=== PATIENT | female | born 1945 | race Caucasian/White ===

== ENCOUNTER → 2020-04-26 | Outpatient (CLI) | payer OTHER ==
[~2020-04-26] MED LIST: ADVIL100 M3 PO; AMBIEN5 MG PO; AMITRIPTYLINE H10 M3 PO; CYMBALTA30 MG PO; DIFLUCAN100 MG PO; ELIQUIS5 MG PO; EYE VITAMINS; FLECAINIDE ACET50 M2 PO; FLEXERIL PO; FOLIC ACID1 MG PO; LASIX PO; LIPITOR 10 MG10 M1 PO; OMEPRAZOLE20 M1 PO; PERCOCET 10-321 EAC1 PO; SINGULAIR 10 MG10 M1 PO; SUPER THERAVIT1 EACH PO; SYMBICORT160 MCG/4. INH; TOPROL XL25 MG PO; VITAMIN D3 PO; XYZAL5 MG PO; ZINC SULFATE220 MG PO
--- NOTE | 2020-05-10 14:22 | PAINCON ---
[address] [address] PAIN MANAGEMENT CONSULTATION Name: RADHA HUGGINS Room: [facility]#: [id number] Admission: 04/26/20 Attend Phys: Arturo Alcantar MD Discharge: Date of : 49 Report #: [id number] THIS REPORT FOR: //name// cc: Amanda Spaulding MD, Pamela MD ~ THIS REPORT FOR: //name// CC: Arturo Spaulding DATE OF SERVICE: 04/26/2020 CHIEF COMPLAINT: Strong nerve pain in the right mid to outer thigh and chronic back pain. HISTORY: The patient is a 74-year-old female who has been referred to the pain clinic for evaluation of chronic pain. This pain has been problematic since 2008. Pain is worse in the morning. Pain has become somewhat worse and she had surgery in September. She underwent a laminectomy. She suffered from a staph infection. She had a second surgery in October. She has been treated with oral steroids for a lung problem. She rates her pain today as a 9/10. She has tried rest, ice in the area as well as pain pills. She has "been taking pain pills all her life." Denies any new bowel or bladder dysfunction. She has not had injections since her surgery. She has symptoms of spinal stenosis. 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 CURRENT MEDICATIONS: Flecainide 50 mg b.i.d., metoprolol 25 mg b.i.d., Lasix 20 mg, Eliquis 5 mg b.i.d., Lipitor 20 mg, Singulair 10 mg, zolpidem, Flexeril 10 mg, ipratropium/albuterol 0.5/2.5, Xyzal 5 mg, Ventolin 2 puffs, Zofran 4 mg, Ocuvite, Protonix 40 mg, duloxetine 60 mg, folic acid 1 mg, Symbicort 160/4.5 2 puffs, fluticasone 50 mcg 1 puff ibuprofen 800 mg p.r.n. t.i.d., montelukast 10 mg. PAST SURGICAL HISTORY: Spinal fusion L3, L4, L5 in 2009, spinal surgery in 2019, appendectomy in 1959, right wrist bone surgery in 1987, left wrist bone removal in 1997, tonsillectomy in 1961, right breast biopsy in 1990, cholecystectomy in 1987, left knee arthroscopy in 1989, left total knee replacement in 06/2013, left knee revision in 08/2014, right total knee in 2010 and 2014, right shoulder arthroscopy and rotator cuff repair in 10/2016. D and C, right shoulder reverse total arthroplasty in 03/2017, colonoscopy, [place] [address] PAIN MANAGEMENT CONSULTATION Name: RADHA HUGGINS Room: [facility]#: [id number] Admission: 04/26/20 Attend Phys: Arturo Alcantar MD Discharge: Date of : 49 Report #: [id number] diverticulosis in 02/2014, miscarriage in 1989. 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 REVIEW OF SYSTEMS: Generally good health, decreased appetite, fatigue, weakness, wears glasses, glaucoma/cataracts, swelling of feet, bleeding and bruising tendencies, anemia, memory loss, breast lump, change in hair and nails, difficulty walking, back pain, muscle pain, cramping, weakness, joint pain, heat and cold intolerance. DIAGNOSTIC DATA: MRI of the lumbar spine dated 01/01/2020; Impression: Posterior and interbody fusion is identified at L4-L5 through L5-S1, stable without evidence of hardware failure. She underwent laminectomy, changes are identified from L1-L2 and L5-S1 without residual spinal canal stenosis. Moderate lumbar spondylosis. PAIN CLINIC ASSESSMENT AND PQRS: 1. Height 5 feet 0 inch, weight 260 pounds per the patient, BMI is not calculated. 2. Vital signs: Blood pressure 100/80, heart rate 81, respiratory rate 16, room air saturation 94%, temperature 98.0. 3. Pain intensity: 9/10 4. Fall history: The patient has not fallen, but does walk with use of a cane. 5. Blood thinner: The patient is on a blood thinning medication. 6. Hypertension: The patient is being treated for hypertension. 7. Opioids: The patient receives medication from her primary. 8. Risk assessment tool: Low for opioid use. 9. Functional assessment tool: Reviewed. 10. Recreational drug use: The patient denies. 11. Tobacco: The patient denies. 12. Alcohol on a regular basis: The patient denies. PHYSICAL EXAMINATION: GENERAL: The patient is a well-developed, obese, white female. She appears her stated age. She is alert and oriented x 3. Her affect is appropriate. Speech is fluent. HEENT: Normocephalic, atraumatic. Extraocular eye muscles intact. Sclerae nonicteric. The patient is wearing a facial covering. HEART: Regular. Heart tones are distant. LUNGS: Distant. MUSCULOSKELETAL: Upper extremity muscle strength is judged to be 4+ on the right shoulder area. The patient has pain and discomfort in the low back area as well as scar down the midline. She notes some discomfort on the left and right areas in the paraspinous area near L4-L5. The patient has pain and discomfort in the right lateral thigh in the area of the anterior and lateral portion of her thigh. She notes that there [place] [address] PAIN MANAGEMENT CONSULTATION Name: JOSELUISRADHA Familia Room: [facility]#: [id number] Admission: 04/26/20 Attend Phys: Arturo Alcantar MD Discharge: Date of : 49 Report #: [id number] discomfort. IMPRESSION: 1. Meralgia paresthetica of the right lateral thigh with burning sensory changes and discomfort. 2. Atrial fibrillation in 2016. 3. Benign hypertension. 4. Osteoarthritis involving multiple joints. 5. Gastroesophageal reflux. 6. Insomnia. 7. Spinal stenosis of the lumbar region with neurogenic claudication. 8. Pulmonary nodule. 9. Dyslipidemia. 10. Memory changes. 11. Amnesia global, transient. 12. Chronic obstructive pulmonary disease with asthma. 13. Myalgia. 14. Morbid obesity. 15. Lower extremity edema. 16. Primary insomnia. 17. Discoloration of skin of foot. RECOMMENDATIONS: We discussed the treatment with the patient. We will have the patient try Elavil 10 mg at bedtime, we will increase this as tolerated. Also the patient will consider the possibility of Lyrica in the future. A script for Percocet 10/325 one p.o. daily, 60 tablets, has been provided. We would like to thank you for letting us participate in her care. We hope she continues to improve. <ELECTRONICALLY SIGNED> By: Arturo Alcantar MD 05/10/20 1422 [id number]. Matt Alcantar MD /[facility]
== END ==
LOC: M.PC 08:34
PROVIDERS: ATTEND Anesthesiology Pain Medicine
DX: G89.29 Other chronic pain (principal); M48.062 Spinal stenosis, lumbar region with neurogenic claudication; G57.11 Meralgia paresthetica, right lower limb; I48.91 Unspecified atrial fibrillation; I10 Essential (primary) hypertension; M19.90 Unspecified osteoarthritis, unspecified site; K21.9 Gastro-esophageal reflux disease without esophagitis; R91.1 Solitary pulmonary nodule; E78.5 Hyperlipidemia, unspecified; J44.9 Chronic obstructive pulmonary disease, unspecified; M79.10 Myalgia, unspecified site; E66.01 Morbid (severe) obesity due to excess calories; F51.01 Primary insomnia; R60.0 Localized edema; Z79.891 Long term (current) use of opiate analgesic; Z79.899 Other long term (current) drug therapy